=== PATIENT | male | born 1995 | race Two or more races ===

== ENCOUNTER 2022-04-25 02:04 | Emergency (ER) | payer SELFPAY ==
[~2022-04-25] VITALS: Ht 170.2 cm; Wt 90.9 kg
[2022-04-25 02:33] VITALS: BP 132/77
== END 2022-04-25 02:40 ==
LOC: ER 02:07
DX: F10.929 Alcohol use, unspecified with intoxication, unspecified (principal); R58 Hemorrhage, not elsewhere classified; V87.7XXA Person injured in collision between other specified motor vehicles (traffic), initial encounter; Y93.89 Activity, other specified; Y92.89 Other specified places as the place of occurrence of the external cause; Y99.8 Other external cause status; Y90.9 Presence of alcohol in blood, level not specified
CPT/HCPCS: 99283